=== PATIENT | female | born 1965 | race Caucasian/White ===

== ENCOUNTER 2016-08-02 09:06 | Outpatient (CLI) | payer OTHER ==
[2016-08-02 13:20] LABS: BASOPHILS % (AUTO) 0.8 %; EOSINOPHILS # (AUTO) 0.1 10^3/uL (0.0-0.7); EOSINOPHILS % (AUTO) 1.7 %; HCT - HEMATOCRIT 39.4 % (37.0-47.0); HGB - HEMOGLOBIN 13.3 g/dL (12.0-16.0); LYMPHOCYTES # (AUTO) 1.6 10^3/uL (1.5-3.5); LYMPHOCYTES % (AUTO) 35.5 %; MEAN CORPUSCULAR HEMOGLOBIN 31.7 pg (27.0-31.0); MEAN CORPUSCULAR HGB CONC 33.8 g/dL (32.0-36.0); MEAN CORPUSCULAR VOLUME 93.8 fL (81.0-99.0); MEAN PLATELET VOLUME 7.6 fL (7.9-10.8); MONOCYTES # (AUTO) 0.4 10^3/uL (0.0-1.0); NEUTROPHILS # (AUTO) 2.5 10^3/uL (1.5-6.6); RED CELL DISTRIBUTION WIDTH 12.7 % (12.0-15.0); UNCORRECTED WHITE BLOOD COUNT 4.6 x10^3/uL; WHITE BLOOD COUNT 4.6 x10^3/uL (4.8-10.8)
[2016-08-02 13:54] LABS: ALBUMIN/GLOBULIN RATIO 1.5 (1.0-2.2); BILIRUBIN,TOTAL 0.6 mg/dL (0.2-1.0); BUN - BLOOD UREA NITROGEN 17 mg/dL (6-20); CALCIUM 9.5 mg/dL (8.5-10.3); CARBON DIOXIDE - CO2 26 mmol/L (21-32); CHLORIDE 109 mmol/L (101-111); CHOL/HDL RATIO 3.3 (<4.4); CHOLESTEROL 224 mg/dL; CREATININE 0.7 mg/dL (0.4-1.0); GFR - MDRD 88 (>89); GLUCOSE 96 mg/dL (70-100); HDL CHOLESTEROL 67 mg/dL; POTASSIUM 3.9 mmol/L (3.5-5.0); SODIUM 142 mmol/L (135-145); TOTAL PROTEIN 6.9 g/dL (6.7-8.2); TRIGLYCERIDES 98 mg/dL; VLDL CHOLESTEROL 20 mg/dL
[2016-08-02 14:29] LABS: HEMOGLOBIN A1C 0.53 g/dL
== END 2016-08-02 09:07 | disposition home or self-care (01) ==
LOC: LAB.WCP 09:06
PROVIDERS: ATTEND Family Medicine
DX: Z00.00 Encounter for general adult medical examination without abnormal findings (principal); I10 Essential (primary) hypertension
CPT/HCPCS: 36415; 80053; 80061; 83036; 84443; 85025

== ENCOUNTER 2016-09-10 13:48 | Outpatient (CLI) | payer OTHER ==
--- NOTE | 2016-09-10 18:44 | Ultrasound Report ---
LEFT BREAST ULTRASOUND: 09/10/2016 CLINICAL HISTORY: A 51-year-old female who has a small palpable prominence in the inner inferior harriet drant of the left breast 1-2 cm from the left nipple at the 8 o'clock position. Patient's mammogram today was negative. TECHNIQUE: Real-time scanning was performed with hotel services sales representative static images obtained. FINDINGS: Left breast ultrasound is negative. No significant masses are seen. No cysts are noted. Considering the negative bilateral mammogram and left breast ultrasound, patient's palpable prominenc e is most likely normal breast tissue. Patient was told by Dr. Leslie that she should keep track of the area of concern with monthly breast exams. If she notices a significant change in the area, she should return to her physician. IMPRESSION: NEGATIVE LEFT BREAST ULTRASOUND. AREA OF CLINICAL CONCERN IN THE LEFT BREAST MOST LIKEL Y REPRESENTS NORMAL BREAST TISSUE DISCUSSED ABOVE. BIRADS CATEGORY 1 - NEGATIVE. RECOMMENDATIONS: Annual bilateral screening mammography. JOB #: [id number] EXT JOB #:[id number]
--- NOTE | 2016-09-10 18:49 | Mammography Report ---
DIAGNOSTIC BILATERAL DIAGNOSTIC MAMMOGRAM: 09/10/2016 CLINICAL HISTORY: This is a 51-year-old female who has a palpable prominence in the inner inferior q uadrant of the left breast 1-2 cm from the left nipple at the 8 o'clock position. Patient has no fam yuki history of breast tissue cancer. Patient has no past history of breast surgeries. COMPARISON: 08/08/2009, 03/20/2013 TECHNIQUE: Craniocaudad and oblique lateral views of each breast were obtained with [facility] Full Fie ld digital mammography. To compliment the exam, coned-down compression craniocaudad view of the left breast was done and a mediolateral view. FINDINGS: Breast parenchyma consists of scattered fibroglandular densities. No clusters of calcific ation are seen. No masses are noted. No change is seen. Considering patient has a palpable prominence, recommend a left breast ultrasound to compliment the p resent study. Ultrasound can show abnormalities especially in patients who have palpable prominences that are not demonstrable on mammography. IMPRESSION: BIRADS 0 - INCOMPLETE. NEEDS ADDITIONAL IMAGING EVALUATION. LEFT BREAST ULTRASOUND. LEFT BREAST ULTRASOUND WILL BE DONE TODAY PART OF PATIENT'S EVALUATION. STANDARD QUALIFYING STATEMENTS 1. This examination was reviewed with the aid of Computer-Aided Detection (CAD). 2. A negative or benign imaging report should not delay biopsy if clinically suspicious findings are present. Consider surgical consultation if warranted. More than 5% of cancers are not identified by luz chaudhary. 3. Dense breasts may obscure an underlying neoplasm. JOB #: [id number] EXT JOB #:[id number]
== END 2016-09-10 13:49 | disposition home or self-care (01) ==
LOC: DI 13:48
PROVIDERS: ATTEND Physician Assistant Medical
DX: N63 Unspecified lump in breast (principal)
CPT/HCPCS: 76642; 77066

== ENCOUNTER 2016-11-27 20:01 | Outpatient (CLI) | payer OTHER ==
--- NOTE | 2016-11-28 10:29 | Ultrasound Report ---
PELVIC ULTRASOUND: 11/27/2016 CLINICAL INDICATION: Dysfunctional uterine bleeding, ovarian cyst. COMPARISON: 04/19/2015 TECHNIQUE: Transabdominal pelvic ultrasound performed for global evaluation. Transvaginal pelvic ult rasound performed for detailed evaluation. Real-time scanning performed and static images obtained. FINDINGS: The uterus is anteverted, measuring 10.5 x 6.2 x 5.4 cm. The endometrium now measures 14 mm. A 1.7 x 1.5 x 1.2 cm anterior submucosal leiomyoma is noted. The right ovary measures 2.9 x 1.9 x 1.8 cm, and is unremarkable. The left ovary measures 4.6 x 2.2 x 1.8 cm, and contains a 2.9 x 1.6 x 1.6 cm cyst. No free fluid is present. IMPRESSION: A 14 MM ENDOMETRIUM. ANTERIOR SUBMUCOSAL LEIOMYOMA. RESOLUTION OF PREVIOUSLY SEEN RIGH T OVARIAN CYST. A 2.9 CM LEFT OVARIAN CYST. JOB #: [id number] EXT JOB #:[id number]
== END 2016-11-27 20:02 | disposition home or self-care (01) ==
LOC: DI 20:01
PROVIDERS: ATTEND Physician Assistant Medical
DX: D25.0 Submucous leiomyoma of uterus (principal); N83.202 Unspecified ovarian cyst, left side
CPT/HCPCS: 76830; 76856

== ENCOUNTER 2016-12-17 16:32 | Outpatient (CLI) | payer OTHER ==
[2016-12-17 17:20] LABS: BASOPHILS # (AUTO) 0.1 10^3/uL (0.0-0.1); BASOPHILS % (AUTO) 0.7 %; EOSINOPHILS # (AUTO) 0.1 10^3/uL (0.0-0.7); EOSINOPHILS % (AUTO) 1.5 %; HCT - HEMATOCRIT 36.7 % (37.0-47.0); HGB - HEMOGLOBIN 12.3 g/dL (12.0-16.0); LYMPHOCYTES # (AUTO) 3.4 10^3/uL (1.5-3.5); LYMPHOCYTES % (AUTO) 39.2 %; MEAN CORPUSCULAR HEMOGLOBIN 31.5 pg (27.0-31.0); MEAN CORPUSCULAR HGB CONC 33.5 g/dL (32.0-36.0); MEAN CORPUSCULAR VOLUME 93.8 fL (81.0-99.0); MEAN PLATELET VOLUME 6.5 fL (7.9-10.8); MONOCYTES # (AUTO) 0.8 10^3/uL (0.0-1.0); MONOCYTES % (AUTO) 9.1 %; NEUTROPHILS # (AUTO) 4.2 10^3/uL (1.5-6.6); NEUTROPHILS % (AUTO) 49.5 %; RED BLOOD COUNT 3.91 10^6/uL (4.20-5.40); RED CELL DISTRIBUTION WIDTH 12.7 % (12.0-15.0); UNCORRECTED WHITE BLOOD COUNT 8.6 x10^3/uL; WHITE BLOOD COUNT 8.6 x10^3/uL (4.8-10.8)
[2016-12-17 17:32] LABS: BILIRUBIN,URINE NEGATIVE (NEGATIVE); PH,URINE 6.5 PH (5.0-7.5)
[2016-12-17 17:37] LABS: ALBUMIN/GLOBULIN RATIO 1.7 (1.0-2.2); BILIRUBIN,TOTAL 0.5 mg/dL (0.2-1.0); CALCIUM 9.6 mg/dL (8.5-10.3); CREATININE 0.8 mg/dL (0.4-1.0); POTASSIUM 3.2 mmol/L (3.5-5.0); TOTAL PROTEIN 7.1 g/dL (6.7-8.2)
== END 2016-12-17 16:33 | disposition home or self-care (01) ==
LOC: LAB 16:32
PROVIDERS: ATTEND Obstetrics & Gynecology
DX: Z01.812 Encounter for preprocedural laboratory examination (principal); N95.0 Postmenopausal bleeding; D21.9 Benign neoplasm of connective and other soft tissue, unspecified
CPT/HCPCS: 36415; 80053; 81003; 85025; 86850; 86900; 86901

== ENCOUNTER 2016-12-19 10:20 | Day surgery (SDC) | payer OTHER ==
--- NOTE | 2016-12-17 18:32 | PREOP HISTORY & PHYSICAL ---
DATE OF ADMISSION/SURGERY: 12/19/2016 DIAGNOSES: 1. Menorrhagia, Failing Medical Treatment. 2. Submucosal fibroid. 3. Postmenopausal x9 months. HISTORY OF PRESENT ILLNESS: The patient is a 51-year-old 2, para 2, woman who reports unremitting postmenopausal bleeding that has been heavier over the last couple of months. Menopause was confirmed by an elevated FSH in February of 2015. She reports most recently 2 weeks of sustained bleeding, with clots and saturation of pads. This stopped today. She feels anemic and has decreased exercise tolerance. She has no orthostatic signs. Transvaginal ultrasound revealed a 14 mm endometrial stripe and an anterior submucosal leiomyoma that is 17 x 15 x 12 mm. There was no ovarian pathology noted. Endometrial biopsy was negative for hyperplasia and malignancy. The patient has a distant history of an abnormal Pap smear that has been normal since her colposcopy. She is not on supplemental estrogen. Menarche at 14 and possible menopause in February of 2015. She has never used contraception. PAST MEDICAL HISTORY: Positive for hypertension, treated with weight loss and antidiuretics. PAST SURGICAL HISTORY: None ALLERGIES: THE PATIENT IS SENSITIVE TO HYDROCODONE, WITH EXTENDED VOMITING. 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 Drinks 1-3 cups of coffee a day. No particular diet. Nonsmoker. Social drinker. No street drugs. . FAMILY HISTORY: No genetic diseases. REVIEW OF SYSTEMS: GENERAL: Weight gain and fatigue. HEENT: Negative. CARDIOVASCULAR: No chest pain, palpitations, or irregularities. RESPIRATORY: No shortness of breath. No current infection. GASTROINTESTINAL: Negative. GYNECOLOGIC: Reference HPI. URINARY: Negative. MUSCULOSKELETAL: Negative. SKIN: Negative. NEUROLOGIC: Negative. PSYCHOLOGIC: Negative. BREASTS: No reported problems. LYMPHATIC/HEMATOLOGIC: Does not have easy bleeding tendency. PHYSICAL EXAMINATION: GENERAL: Well groomed. Pleasant demeanor. VITAL SIGNS: Posted. HEENT: Nonicteric sclerae. EOMI. Moist mucous membranes, with no pharyngitis. NECK: Supple. No thyromegaly. BREASTS: Deferred. LUNGS: Clear to auscultation. CARDIAC: Faint systolic ejection murmur. No gallop. Regular rhythm. ABDOMEN: Pannus. Truncal obesity. No organomegaly. No herniation. GENITOURINARY: Vulva: Normal Bartholin's glands, without atrophy. No lesions. Urethral meatus normal. Mobile. No incontinence observed. VAGINA: Moist mucosa. Prien. No significant prolapse. CERVIX: No lesions or ulcerations. No cervical motion tenderness. UTERUS: Parous. Difficult to determine size due to body habitus. ADNEXA: No tenderness noted. Ovaries seem to be normal size. EXTREMITIES: No edema. Warm hands and feet. Patellar reflexes 2+ and equal. NEUROLOGICAL: Grossly intact. PSYCHOLOGIC: Calm demeanor. No overt anxiety or evidence of depression. ASSESSMENT: The patient has had an extended episode of postmenopausal bleeding, with a negative biopsy. There is a submucosal fibroid which accounts for most of her bleeding. Therefore, the underlying cause is a functional uterine bleeding that would respond best by surgical intervention. PLAN: Hysteroscopy to assess the inner cavity. If there is suspicious tissue, we will biopsy and do a D and C. After examination of the cavity, if the fibroid has a significant impact on the contour, we will perform a myomectomy. After the hysteroscopy, NovaSure endometrial ablation will be performed to cauterize the lining of the uterus. I reviewed the procedure & plan in detail with the patient, including the risks of bleeding, transfusion, infection, perforation either during hysteroscopy or myomectomy, and fluid embolism. The patient desires to move forward with hysteroscopy, with NovaSure endometrial ablation and possible myomectomy. JOB #: [id number] EXT JOB #:[id number] MTDD
[2016-12-19] MEDS ORDERED: LACTATED RINGERS 1,000 ML IV ONE (10:44)
[2016-12-19 10:56] LABS: HCG UR QUAL NEGATIVE
[2016-12-19] MEDS ORDERED: KETOROLAC 30 MG/ML VIAL IVP ONE (11:30)
[2016-12-19] MEDS ORDERED: fentaNYL 100 MCG/2 ML VIAL IVP ONE (11:30)
[2016-12-19] MEDS ORDERED: LIDOCAINE-MPF 2% 5 ML VIAL IM ONE (11:30)
[2016-12-19] MEDS ORDERED: PROPOFOL 200 MG/20 ML VIAL IVP ONE (11:30)
[2016-12-19] MEDS ORDERED: ONDANSETRON 4 MG/2 ML VIAL IVP ONE (11:30)
[2016-12-19] MEDS ORDERED: DEXAMETHASONE 4 MG/ML VIAL IVP ONE (11:30)
[2016-12-19] MEDS ORDERED: MIDAZOLAM 2 MG/2 ML VIAL IVP ONE (11:30)
--- NOTE | 2016-12-19 12:12 | OPERATIVE REPORT ---
Operative Report - General Planned Procedure: Hysteroscopy with endometrial ablation (NovaSure) and possible myomectomy a Pre-Op Diagnosis: Abnormal uterine bleeding/menorrhagia,Submucosal fibroid, Thickened endomet Procedure Performed: Hysteroscopy, dilatation and curettage, NovaSure endometrial ablation Post Op Diagnosis: Same as preop, await pathology - Procedure Note Primary Surgeon: Ortega Damon MD Anesthesia Provider: Mike Hayes certified nurse product managent intern Anesthesia Technique: General ET tube Pathology: Endometrial curettage sent Estimated Blood Loss (mL): 50 Urine Output (mL): 400 Complications: None
[2016-12-19] MEDS ORDERED: HYDROcod/ACETAM 5/325 MG TABLET ONE (12:47)
[2016-12-19 13:23] VITALS: BP 127/66
--- NOTE | 2016-12-19 15:49 | OPERATIVE REPORT ---
DATE OF SURGERY: 12/19/2016 00:00:00 PREOPERATIVE DIAGNOSES 1. Abnormal uterine bleeding/menorrhagia/ 2. Submucosal fibroid. 3. Endometrial thickening with normal endometrial biopsy. POSTOPERATIVE DIAGNOSES 1. Abnormal uterine bleeding/menorrhagia. 2. Submucosal fibroid. 3. Endometrial thickening with normal endometrial biopsy. 4. Await pathology. PROCEDURE 1. Hysteroscopy. 2. NovaSure endometrial ablation. 3. Endometrial curettage. 4. Cystoscopy. SURGEON: Ortega Damon MD, FACOG. MAGAZINE EDITOR: Mike Hayes, certified union contract representative. ANESTHESIA TECHNIQUE: General with ET tube placed. PATHOLOGY: Endometrial scrapings sent for histopathology. INTRAVENOUS FLUIDS: 1000. ESTIMATED BLOOD LOSS: Less than 50. URINE OUTPUT: 400 clear. DRAINS: None. FINDINGS: Cervix has no lesions to gross examination. Uterus is slightly enlarged. It sounds to 8.5 cm. The interior shows no fibroid effect. There is velvety mat of benign-appearing endometrium on the posterior aspect of the uterus. Appears to be simple hyperplasia. There was no significant fibroid effect seen. Post-treatment, it is estimated that 95% of the cavity was treated by the NovaSure. Reference photos. Cystoscopy revealed normal uterine mucosa and functional ureters. TECHNIQUE: Prior to the surgery, there was a patient conference that reviewed the intended procedures, their mechanics, risks, benefits, and alternatives. The patient confirms that she intends to continue forward with the procedure and all informed consent documents were signed. The patient was placed on the operating table in the supine position. She was uneventfully induced and intubated. She was then moved to the low dorsal lithotomy position. She was prepped and draped in the customary sterile fashion. Time-out procedure was done per protocol. Lithotomy was raised into the high lithotomy position. A weighted speculum was placed in the posterior vagina. A cystoscopy was performed. There was no cystitis found and the ureters appeared to be functional. Anterior cervical lip was grasped with a single-toothed tenaculum and it was uneventfully dilated with Hegar probes to a size 7. It was sounded to 8.5 cm. The hysteroscope was then introduced into the cavity, and using distilled water the cavity was expanded under 150 mm of pressure. Photos were taken. There was no fibroid effect noted. Due to the tissue found on the posterior aspect of the uterus, a medium size curet was introduced into the cavity and systematic scraping removed a small amount of benign-appearing tissue. The cavity then was flushed. Next, the NovaSure was brought to the field. The sounding was used to dissect the vertical indices at 6.5. NovaSure was introduced into the cavity and deployed, total width was 4.9. These settings were placed. The NovaSure performed its self-test routine, which was normal. The NovaSure was then fired for a period of less than 1 minute. After treatment, it was folded up and removed from the uterus. Hysteroscope was then reintroduced and the treated areas photographed. The patient was awakened from general anesthesia. She was taken to the recovery room in good condition. She was prepared for discharge later today. DISCHARGE MEDICATIONS: Motrin and Paige as previously written in the office. Followup will be in 4 weeks. JOB #: [id number] EXT JOB #:[id number]
== END 2016-12-19 10:21 | disposition home or self-care (01) ==
LOC: SDS 10:20
PROVIDERS: ATTEND Obstetrics & Gynecology
PROC: 0UDB7ZX Extraction of Endometrium, Via Natural or Artificial Opening, Diagnostic (ICD-10-PCS; 2016-12-19)
PROC: 0TJB8ZZ Inspection of Bladder, Via Natural or Artificial Opening Endoscopic (ICD-10-PCS; 2016-12-19)
PROC: 0U5B8ZZ Destruction of Endometrium, Via Natural or Artificial Opening Endoscopic (ICD-10-PCS; principal; 2016-12-19 11:30)
DX: N95.0 Postmenopausal bleeding (principal); D25.0 Submucous leiomyoma of uterus
CPT/HCPCS: 52000; 58563; 81025; A9270; J7120

== ENCOUNTER 2017-07-05 09:50 | Outpatient (CLI) | payer OTHER ==
[2017-07-05 14:15] LABS: CALCIUM 9.9 mg/dL (8.5-10.3); CREATININE 0.7 mg/dL (0.4-1.0)
== END 2017-07-05 09:51 | disposition home or self-care (01) ==
LOC: LAB.WCP 09:50
PROVIDERS: ATTEND Physician Assistant Medical
DX: E83.52 Hypercalcemia (principal)
CPT/HCPCS: 36415; 80048

== ENCOUNTER 2018-07-30 10:54 | Outpatient (CLI) | payer OTHER ==
[2018-07-30 18:52] LABS: BASOPHILS % (AUTO) 0.7 %; EOSINOPHILS # (AUTO) 0.1 10^3/uL (0.0-0.7); EOSINOPHILS % (AUTO) 1.6 %; HGB - HEMOGLOBIN 14.2 g/dL (12.0-16.0); LYMPHOCYTES # (AUTO) 2.3 10^3/uL (1.5-3.5); LYMPHOCYTES % (AUTO) 42.8 %; MEAN PLATELET VOLUME 7.8 fL (7.9-10.8); MONOCYTES # (AUTO) 0.4 10^3/uL (0.0-1.0); MONOCYTES % (AUTO) 6.8 %; NEUTROPHILS # (AUTO) 2.6 10^3/uL (1.5-6.6); NEUTROPHILS % (AUTO) 48.1 %; PLT - PLATELET COUNT 254 10^3/uL (130-450); RED BLOOD COUNT 4.59 10^6/uL (4.20-5.40); RED CELL DISTRIBUTION WIDTH 12.7 % (12.0-15.0); WHITE BLOOD COUNT 5.4 x10^3/uL (4.8-10.8)
[2018-07-30 19:32] LABS: ALBUMIN 4.4 g/dL (3.2-5.5); ALBUMIN/GLOBULIN RATIO 1.7 (1.0-2.2); ALKALINE PHOSPHATASE 62 IU/L (42-121); ALT ALANINE AMINOTRANSFERASE 37 IU/L (10-60); AST ASPARTATE AMINOTRANSFERASE 25 IU/L (10-42); BILIRUBIN,TOTAL 0.9 mg/dL (0.2-1.0); BUN - BLOOD UREA NITROGEN 20 mg/dL (6-20); CALCIUM 9.7 mg/dL (8.5-10.3); CARBON DIOXIDE - CO2 26 mmol/L (21-32); CHLORIDE 104 mmol/L (101-111); CHOL/HDL RATIO 3.4 (<4.4); CHOLESTEROL 210 mg/dL; CREATININE 0.8 mg/dL (0.4-1.0); GFR - MDRD 75 (>89); GLUCOSE 113 mg/dL (70-100); HDL CHOLESTEROL 62 mg/dL; LDL CHOLESTEROL,CALCULATED 122 mg/dL; SODIUM 140 mmol/L (135-145); VLDL CHOLESTEROL 26 mg/dL
== END 2018-07-30 10:55 | disposition home or self-care (01) ==
LOC: LAB.WCP 10:54
PROVIDERS: ATTEND Physician Assistant Medical
DX: Z00.00 Encounter for general adult medical examination without abnormal findings (principal)
CPT/HCPCS: 36415; 80053; 80061; 83721; 84443; 85025

== ENCOUNTER 2018-09-30 11:16 | Outpatient (CLI) | payer OTHER ==
--- NOTE | 2018-10-01 09:04 | XRAY Report ---
Reason: LUMBAR RADICULOPATHY,RIGHT Procedure Date: 09/30/2018 Accession Number: [id number] / [id number] Procedure: XR - Lumbar Spine 2 View CPT Code: FULL RESULT: EXAM: LUMBOSACRAL SPINE RADIOGRAPHY EXAM DATE: 09/30/2018 11:29 AM. CLINICAL HISTORY: Low back pain, right. COMPARISONS: XR LUMBOSACRAL SPINE 4 VIEWS 02/27/2010 4:44 PM. TECHNIQUE: 3 views. FINDINGS: Alignment: Normal. No spondylolisthesis or scoliosis. Bones: Five csl-hzb-uyeucgb lumbar vertebral bodies are present. No fractures or bone lesions. Disks: Moderate to severe L5-S1 disk space narrowing and moderate bridging spurring are new compared with prior exam. Otherwise, substantial lumbar disk space narrowing is not demonstrated. Facets: L5-S1 degenerative facet disease is probably progressed. Sacroiliac Joints: Unremarkable. Soft Tissues: Normal. The visualized bowel gas pattern is normal. IMPRESSION: 1. Moderate to severe L5-S1 degenerative disk disease, new compared with 2011. 2. L5-S1 degenerative facet disease, probably progressed. RADIA
== END 2018-09-30 11:17 | disposition home or self-care (01) ==
LOC: DI 11:16
PROVIDERS: ATTEND Family Medicine
DX: M51.17 Intervertebral disc disorders with radiculopathy, lumbosacral region (principal)
CPT/HCPCS: 72100

== ENCOUNTER 2018-10-02 17:22 | Outpatient (CLI) | payer OTHER ==
[2018-10-02] MEDS ORDERED: GADOBUTROL 10 MMOL/10 ML VIAL IV ONE (18:44)
[2018-10-02] MEDS ORDERED: GADOBUTROL 10 MMOL/10 ML VIAL ONE (18:49)
--- NOTE | 2018-10-03 04:26 | MRI Report ---
Reason: LUMBAR RADICULOPATHY Procedure Date: 10/02/2018 Accession Number: [id number] / [id number] Procedure: MRI - Lumbar Spine W/WO CPT Code: FULL RESULT: EXAM: MRI LUMBAR SPINE WITHOUT AND WITH CONTRAST EXAM DATE: 10/02/2018 07:01 PM. CLINICAL HISTORY: LUMBAR RADICULOPATHY. COMPARISONS: None. TECHNIQUE: Multiplanar, multisequence T1-weighted and fluid-sensitive sequences of the lumbar spine from T12 to S1 before and after administration of intravenous contrast. Other: None. IV contrast: Yes. FINDINGS: Neurologic Structures: The conus terminates at L1. The conus medullaris and cauda equina are unremarkable. Alignment: No scoliosis or spondylolisthesis. Bone Marrow: Five ere-egz-wuuqkph lumbar vertebral bodies are assumed. No gross fractures or bone lesions. No bone marrow replacement or abnormal enhancement. Disk Levels/Facets: T12-L1: There is minimal anterior bulging at this level. Posteriorly the disk is intact. The canal and the foramina are widely patent. L1-L2: The disk is intact. The canal and the foramina are widely patent. L2-L3: The disk is intact. The canal and the foramina are widely patent. Incidental note is made of a prominent hemangioma within the L2 vertebral body. L3-L4: The disk is intact. The canal and the foramina are widely patent. L4-L5: The disk is intact. The canal and the foramina are widely patent. There are moderate degenerative changes at the facets. L5-S1: There is severe disk space narrowing. There are marked diskogenic changes in the marrow of L5 and S1. There are no focal protrusions. There is no mass-effect on any neural structures. The canal and the foramina are widely patent. There are degenerative changes at the facets. Spinal Canal: No enhancing masses within the spinal canal. No epidural abscess. Musculature: Normal. No edema, abnormal enhancement, or fatty atrophy. Other: The visualized retroperitoneum is unremarkable. IMPRESSION: 1. Severe degeneration and narrowing of the L5-S1 facet. No canal neuroforaminal stenosis. 2. Degenerative changes at the facets L4-L5 and L5-S1. 3. Incidental note is made of an hemangioma in the L2 vertebral body. This is of no clinical significance. Comment: The following findings are so common in adults without low back pain that while we report their presence, they must be interpreted with caution and in the context of the clinical situation. (Reference Ritikak et al, Spine 2001) Prevalence of findings in patients without low back pain: Disk degeneration (any evidence): 92% Disk desiccation/T2 signal loss: 83% Disk height loss: 56% Disk bulge: 64% Disk protrusion: 32% Annular tear/high intensity zone: 38% RADIA
== END 2018-10-02 17:23 | disposition home or self-care (01) ==
LOC: DI 17:22
PROVIDERS: ATTEND Family Medicine
DX: M47.816 Spondylosis without myelopathy or radiculopathy, lumbar region (principal); M47.817 Spondylosis without myelopathy or radiculopathy, lumbosacral region; M51.37 Other intervertebral disc degeneration, lumbosacral region
CPT/HCPCS: 72158; A9585

== ENCOUNTER 2018-10-13 09:47 | Outpatient (CLI) | payer OTHER ==
--- NOTE | 2018-10-13 15:57 | XRAY Report ---
Reason: UNSPECIFIED FALL,GROIN PAIN RT Procedure Date: 10/13/2018 Accession Number: [id number] / [id number] Procedure: XR - Hip w/Pelvis 2-3V RT CPT Code: FULL RESULT: EXAM: RIGHT HIP RADIOGRAPHY EXAM DATE: 10/13/2018 10:01 AM. CLINICAL HISTORY: Unspecified fall, right groin pain. COMPARISON: XR LUMBOSACRAL SPINE 4 VIEWS 02/27/2010. TECHNIQUE: 2 views. FINDINGS: Bones: Normal. No fractures or bone lesion. Joints: No dislocation or subluxation. Mild asymmetric degenerative change noted in the left SI joint. Right SI joint is normal. Soft Tissues: Normal. No soft tissue swelling. IMPRESSION: No fracture or malalignment. RADIA
== END 2018-10-13 09:48 | disposition home or self-care (01) ==
LOC: DI 09:47
PROVIDERS: ATTEND Physician Assistant
DX: R10.31 Right lower quadrant pain (principal)

== ENCOUNTER 2019-01-06 08:22 | Outpatient (CLI) | payer OTHER ==
--- NOTE | 2019-01-06 10:00 | Mammography Report ---
Reason: ROUTINE MAMMO Procedure Date: 01/06/2019 Accession Number: [id number] / [id number] Procedure: ANDREY - Screening Mammo w/Zen CPT Code: Final Report FULL RESULT: EXAM: Screening Mammo w/Zen DATE: 01/06/2019 8:47 AM CLINICAL HISTORY: Routine screening. No reported personal or family history of breast cancer. TECHNIQUE: (B) - Bilateral CC and MLO views were obtained. COMPARISON: 7 09/11/2016 through 03/20/2013. PARENCHYMAL PATTERN: (A) - The breasts demonstrate scattered fibroglandular densities bilaterally. FINDINGS: Bilateral breasts: There are multiple similar-appearing round and oval circumscribed margin benign-appearing masses, 2 on the left one on the right. There are no suspicious masses, calcifications, or areas of distortion. IMPRESSION: Benign findings. BI-RADS category 2. RECOMMENDATION: (ANNUAL) - Recommend routine annual screening mammography. BI-RADS CATEGORY: (2) - Benign Findings. STANDARD QUALIFYING STATEMENTS: 1. This examination was not reviewed with the aid of Computer-Aided Detection (CAD). 2. A negative or benign imaging report should not preclude biopsy if clinically suspicious findings are present. 3. Dense breasts may obscure an underlying neoplasm. 4. This examination was reviewed with the aid of 3D breast imaging (tomosynthesis).
== END 2019-01-06 08:23 | disposition home or self-care (01) ==
LOC: DI 08:22
DX: Z12.31 Encounter for screening mammogram for malignant neoplasm of breast (principal)
CPT/HCPCS: 77063; 77067

== ENCOUNTER 2019-03-03 14:44 | Outpatient (CLI) | payer OTHER ==
[2019-03-03] MEDS ORDERED: IOVERSOL 320 50 ML VIAL ONE (14:50)
[2019-03-03] MEDS ORDERED: IOVERSOL 320 100 ML VIAL IVP ONE ×2 (14:50→16:26)
[2019-03-03 15:50] LABS: CREATININE 0.8 mg/dL (0.4-1.0)
[2019-03-03] MEDS ORDERED: IOVERSOL 320 50 ML VIAL PO ONE (16:26)
--- NOTE | 2019-03-04 13:04 | CT Report ---
Reason: GROIN PAIN RT Procedure Date: 03/03/2019 Accession Number: [id number] / [id number] Procedure: CT - Abdomen/Pelvis W CPT Code: Final Report FULL RESULT: EXAM: CT ABDOMEN AND PELVIS EXAM DATE: 03/03/2019 04:25 PM. CLINICAL HISTORY: Right groin pain and numbness x3 days COMPARISONS: None. TECHNIQUE: Routine helical CT imaging was performed through the abdomen and pelvis. IV contrast: 100 mL Optiray 320. Enteric contrast: Yes. Reconstructions: Coronal and sagittal. In accordance with CT protocol optimization, one or more of the following dose reduction techniques were utilized for this exam: automated exposure control, adjustment of mA and/or KV based on patient size, or use of iterative reconstructive technique. FINDINGS: Lung Bases: Minimal bibasilar atelectasis. Visible heart is normal in size. No pericardial effusion. Liver: The liver appears low in attenuation suggesting steatosis. No focal intrahepatic mass is seen. Gallbladder/Bile Ducts: Normal gallbladder. No biliary dilatation. Spleen: Normal. Pancreas: Normal. Adrenal Glands: Normal. Kidneys: Normal. No masses or hydronephrosis. Peritoneal Cavity/Bowel: Scattered diverticula are seen in the colon. Mild inflammatory changes are seen adjacent to the cecum and ascending colon in an area of diverticula. The intestines are normal in caliber and position. The appendix is normal. There is no free intraperitoneal air or ascites. No lymphadenopathy is present. No loculated fluid collection is present. Pelvic Organs: The bladder is normal. The uterus and adnexal structures are within normal limits. Phleboliths are seen in the pelvis. There is no free pelvic fluid. Vasculature: No aneurysms or other significant abnormality. Bones: Degenerative disk disease is seen at T9-T10 and L5-S1. Facet arthropathy and osteophytes are also seen at L5-S1. Other: None. IMPRESSION: Mild cecum and ascending colon diverticulitis. Normal appendix. RADIA
== END 2019-03-03 14:45 | disposition home or self-care (01) ==
LOC: DI 14:44
PROVIDERS: ATTEND Physician Assistant Medical
DX: K57.32 Diverticulitis of large intestine without perforation or abscess without bleeding (principal); R73.9 Hyperglycemia, unspecified
CPT/HCPCS: 36415; 74177; 80048; Q9967

== ENCOUNTER 2019-04-13 12:35 | Day surgery (SDC) | payer OTHER ==
[2019-04-13] MEDS ORDERED: LACTATED RINGERS 1,000 ML IV ONE (13:08)
[2019-04-13] MEDS ORDERED: MIDAZOLAM 2 MG/2 ML VIAL IVP ONE (14:02)
[2019-04-13] MEDS ORDERED: fentaNYL 250 MCG/5 ML VIAL IVP ONE (14:02)
[2019-04-13 14:47] VITALS: BP 112/70
== END 2019-04-13 12:36 | disposition home or self-care (01) ==
LOC: SDS 12:35
PROVIDERS: ATTEND Internal Medicine Gastroenterology
PROC: 0DBN8ZZ Excision of Sigmoid Colon, Via Natural or Artificial Opening Endoscopic (ICD-10-PCS; 2019-04-13)
PROC: 0DBM8ZZ Excision of Descending Colon, Via Natural or Artificial Opening Endoscopic (ICD-10-PCS; principal; 2019-04-13 14:00)
DX: K57.30 Diverticulosis of large intestine without perforation or abscess without bleeding (principal); D12.4 Benign neoplasm of descending colon; D12.5 Benign neoplasm of sigmoid colon; E66.9 Obesity, unspecified; I10 Essential (primary) hypertension; Z68.35 Body mass index [BMI] 35.0-35.9, adult; Z79.899 Other long term (current) drug therapy
CPT/HCPCS: 45380; J3010; J7120

== ENCOUNTER 2020-04-11 08:00 | Outpatient (CLI) | payer OTHER ==
[2020-04-11 12:46] LABS: HEMOGLOBIN A1c% 6.6 % (4.27-6.07)
[2020-04-11 12:49] LABS: ALBUMIN 4.5 g/dL (3.2-5.5); ALBUMIN/GLOBULIN RATIO 1.6 (1.0-2.2); ALKALINE PHOSPHATASE 65 IU/L (42-121); ALT ALANINE AMINOTRANSFERASE 33 IU/L (10-60); AST ASPARTATE AMINOTRANSFERASE 19 IU/L (10-42); BILIRUBIN,TOTAL 0.7 mg/dL (0.2-1.0); BUN - BLOOD UREA NITROGEN 17 mg/dL (6-20); CALCIUM 9.6 mg/dL (8.5-10.3); CARBON DIOXIDE - CO2 28 mmol/L (21-32); CHLORIDE 102 mmol/L (101-111); CHOL/HDL RATIO 3.4 (<4.4); CHOLESTEROL 227 mg/dL; CREATININE 0.7 mg/dL (0.4-1.0); GLUCOSE 155 mg/dL (70-100); HDL CHOLESTEROL 66 mg/dL; LDL CHOLESTEROL,CALCULATED 136 mg/dL; LDL/HDL RATIO 2.1 (<4.4); TOTAL PROTEIN 7.3 g/dL (6.7-8.2); VLDL CHOLESTEROL 25 mg/dL
== END 2020-04-11 23:59 | disposition home or self-care (01) ==
LOC: LAB.WCP 08:00
PROVIDERS: ATTEND Physician Assistant Medical
DX: E11.65 Type 2 diabetes mellitus with hyperglycemia (principal)
CPT/HCPCS: 36415; 80053; 80061; 83036; 83721

== ENCOUNTER 2021-04-20 10:15 | Outpatient (CLI) | payer OTHER ==
[2021-04-20 12:08] LABS: BASOPHILS % (AUTO) 0.8 %; EOSINOPHILS # (AUTO) 0.1 10^3/uL (0.0-0.7); EOSINOPHILS % (AUTO) 1.9 %; HCT - HEMATOCRIT 41.2 % (37.0-47.0); HGB - HEMOGLOBIN 13.9 g/dL (12.0-16.0); MEAN CORPUSCULAR HEMOGLOBIN 30.8 pg (27.0-31.0); MEAN CORPUSCULAR HGB CONC 33.7 g/dL (32.0-36.0); MEAN CORPUSCULAR VOLUME 91.4 fL (81.0-99.0); MEAN PLATELET VOLUME 9.1 fL (7.9-10.8); MONOCYTES # (AUTO) 0.4 10^3/uL (0.0-1.0); MONOCYTES % (AUTO) 8.2 %; NEUTROPHILS # (AUTO) 2.6 10^3/uL (1.5-6.6); NEUTROPHILS % (AUTO) 49.7 %; PLT - PLATELET COUNT 242 10^3/uL (130-450); RED BLOOD COUNT 4.51 10^6/uL (4.20-5.40); RED CELL DISTRIBUTION WIDTH 11.5 % (12.0-15.0); WHITE BLOOD COUNT 5.2 x10^3/uL (4.8-10.8)
[2021-04-20 12:33] LABS: ALBUMIN 4.4 g/dL (3.2-5.5); ALBUMIN/GLOBULIN RATIO 1.8 (1.0-2.2); ALKALINE PHOSPHATASE 59 IU/L (42-121); ALT ALANINE AMINOTRANSFERASE 31 IU/L (10-60); AST ASPARTATE AMINOTRANSFERASE 20 IU/L (10-42); BILIRUBIN,TOTAL 0.9 mg/dL (0.2-1.0); BUN - BLOOD UREA NITROGEN 14 mg/dL (6-20); CALCIUM 9.6 mg/dL (8.5-10.3); CARBON DIOXIDE - CO2 29 mmol/L (21-32); CHLORIDE 104 mmol/L (101-111); CHOL/HDL RATIO 3.4 (<4.4); CHOLESTEROL 218 mg/dL; CREATININE 0.7 mg/dL (0.4-1.0); GFR - MDRD 87 (>89); GLUCOSE 132 mg/dL (70-100); HDL CHOLESTEROL 65 mg/dL; LDL CHOLESTEROL,CALCULATED 120 mg/dL; LDL/HDL RATIO 1.8 (<4.4); POTASSIUM 4.1 mmol/L (3.5-5.0); SODIUM 139 mmol/L (135-145); TOTAL PROTEIN 6.8 g/dL (6.7-8.2); TRIGLYCERIDES 163 mg/dL; VLDL CHOLESTEROL 33 mg/dL
[2021-04-20 12:39] LABS: THYROID STIMULATING HORMONE 0.45 uIU/mL (0.34-5.60)
[2021-04-20 13:25] LABS: ESTIMATED AVERAGE GLUCOSE 154 mg/dL (70-100)
== END 2021-04-20 10:16 | disposition home or self-care (01) ==
LOC: LAB.N 10:15
PROVIDERS: ATTEND Physician Assistant Medical
DX: E78.5 Hyperlipidemia, unspecified (principal); E11.9 Type 2 diabetes mellitus without complications; I10 Essential (primary) hypertension
CPT/HCPCS: 36415; 80053; 80061; 83036; 83721; 84443; 85025

== ENCOUNTER 2021-08-07 14:05 | Emergency (ER) | payer OTHER ==
[2021-08-07 14:33] LABS: BASOPHILS % (AUTO) 0.6 %; EOSINOPHILS # (AUTO) 0.1 10^3/uL (0.0-0.7); EOSINOPHILS % (AUTO) 1.3 %; HCT - HEMATOCRIT 44.1 % (37.0-47.0); HGB - HEMOGLOBIN 14.7 g/dL (12.0-16.0); LYMPHOCYTES # (AUTO) 2.5 10^3/uL (1.5-3.5); LYMPHOCYTES % (AUTO) 46.3 %; MEAN CORPUSCULAR HEMOGLOBIN 30.8 pg (27.0-31.0); MEAN CORPUSCULAR HGB CONC 33.3 g/dL (32.0-36.0); MEAN CORPUSCULAR VOLUME 92.3 fL (81.0-99.0); MEAN PLATELET VOLUME 8.7 fL (7.9-10.8); MONOCYTES # (AUTO) 0.3 10^3/uL (0.0-1.0); MONOCYTES % (AUTO) 5.6 %; NEUTROPHILS # (AUTO) 2.5 10^3/uL (1.5-6.6); NEUTROPHILS % (AUTO) 45.8 %; PLT - PLATELET COUNT 239 10^3/uL (130-450); RED BLOOD COUNT 4.78 10^6/uL (4.20-5.40); RED CELL DISTRIBUTION WIDTH 11.7 % (12.0-15.0); WHITE BLOOD COUNT 5.4 x10^3/uL (4.8-10.8)
[2021-08-07 14:46] LABS: ALBUMIN 4.6 g/dL (3.2-5.5); ALBUMIN/GLOBULIN RATIO 1.6 (1.0-2.2); CALCIUM 9.7 mg/dL (8.5-10.3); CREATININE 0.8 mg/dL (0.4-1.0); POTASSIUM 3.4 mmol/L (3.5-5.0); TOTAL PROTEIN 7.5 g/dL (6.7-8.2)
--- NOTE | 2021-08-07 16:34 | ED Physician Documentation ---
PD HPI ABD PAIN - Stated complaint Stated Complaint: ABD PX - Chief complaint Chief Complaint: Abd Pain - History obtained from History obtained from: Patient - Additional information Additional information: 56-year-old woman with history of borderline diabetes, hypertension and hypercholesterolemia presents with 2 weeks of abdominal bloating not related to eating. It is associated with nausea which is not happening right now and some mild right upper quadrant pain. She is never had this before. No history of abdominal surgeries. No fevers or chills. Review of Systems Ten Systems: 10 systems reviewed and negative Constitutional: denies: Fever, Chills, Fatigue, Weight Loss Cardiac: denies: Chest pain / pressure, Palpitations Respiratory: denies: Dyspnea, Cough PD PAST MEDICAL HISTORY - Past Medical History Cardiovascular: Hypertension Respiratory: None Endocrine/Autoimmune: None GI: None : None Psych: None Musculoskeletal: None Derm: None - Past Surgical History Past Surgical History: No General: Colonoscopy /INFRASTRUCTURE DIRECTOR: Other - Present Medications Home Medications: Ambulatory Orders Medication Instructions Recorded Confirmed lisinopriL [Lisinopril] 0 mg PO DAILY 11/09/15 08/07/21 Rosuvastatin Calcium [Crestor] 0 mg PO HS 08/07/21 08/07/21 - Allergies Allergies/Adverse Reactions: Allergies Allergy/AdvReac Type Severity Reaction Status Date / Time amoxicillin [From Augmentin] Allergy Respiratory Verified 08/07/21 14:17 clavulanic acid Allergy Respiratory Verified 08/07/21 14:17 [From Augmentin] hydrocodone AdvReac Emesis Verified 08/07/21 14:17 - Social History Does the pt smoke?: No Smoking Status: Never smoker Does the pt have substance abuse?: No - POLST Patient has POLST: No PD ED PE NORMAL - Vitals Vital signs reviewed: Yes - General General: Alert and oriented X 3, No acute distress - Cardiac Cardiac: RRR, No murmur - Respiratory Respiratory: No respiratory distress, Clear bilaterally - Abdomen Abdomen: Normal bowel sounds, Soft, Non tender - Neuro Neuro: Alert and oriented X 3, Normal speech Results - Vitals Vitals: Vital Signs - 24 hr 08/07/21 08/07/21 08/07/21 14:15 16:42 17:39 Temperature 37 C Heart Rate 78 64 85 Respiratory 14 16 18 Rate Blood Pressure 170/86 H 144/92 H 140/75 H O2 Saturation 99 99 98 Oxygen O2 Source Room air - Labs Labs: Laboratory Tests 08/07/21 08/07/21 08/07/21 14:27 14:27 15:05 WBC 5.4 RBC 4.78 Hgb 14.7 Hct 44.1 MCV 92.3 MCH 30.8 MCHC 33.3 RDW 11.7 L Plt Count 239 MPV 8.7 Neut # (Auto) 2.5 Lymph # (Auto) 2.5 [place] # (Auto) 0.3 Eos # (Auto) 0.1 Baso # (Auto) 0.0 Absolute Nucleated RBC 0.00 Nucleated RBC % 0.0 Sodium 142 Potassium 3.4 L Chloride 105 Carbon Dioxide 28 Anion Gap 9.0 BUN 14 Creatinine 0.8 Estimated GFR (MDRD) 74 L Glucose 175 H Calcium 9.7 Total Bilirubin 1.0 AST 24 ALT 36 Alkaline Phosphatase 69 Total Protein 7.5 Albumin 4.6 Globulin 2.9 Albumin/Globulin Ratio 1.6 Lipase 39 Urine Color YELLOW Urine Clarity CLOUDY Urine pH 5.5 Ur Specific [place] >=1.030 H Urine Protein NEGATIVE Urine Glucose (UA) NEGATIVE Urine Ketones NEGATIVE Urine Occult Blood NEGATIVE Urine Nitrite NEGATIVE Urine Bilirubin NEGATIVE Urine Urobilinogen 0.2 (NORMAL) Ur Leukocyte Esterase NEGATIVE Urine RBC None Seen Urine WBC 0-3 Ur Squamous Epith Cells NONE SEEN Amorphous Sediment Marked Urine Bacteria None Seen Ur Microscopic Review INDICATED Urine Culture Comments NOT INDICATED PD MEDICAL DECISION MAKING - ED course ED course: 56-year-old woman presents with right-sided abdominal pain and bloating for the last 2 weeks with decreased bowel movements. CT read showing hepatomegaly, nephrolithiasis and diverticula. Official read without acute findings. I do wonder if she has mild right-sided diverticulitis. No other acute pathology is noted. CT done without contrast given current shortage. Very benign exam. I suspect she has mild right-sided diverticulitis and given the lack of severity to it based on exam and labs I think she will be appropriate for an on antibiotic treatment course per AGA guidelines and she is so advised. The patient Was counseled as to the diagnosis and need for follow-up. I counseled the patient with regard to signs and symptoms that would necessitate an urgent reevaluation in the emergency department. They understand they are welcome to return at any time if worse or if not improving as expected. This document was made in part using voice recognition software. While efforts are made to proofread this documents, sound alike and grammatical errors may occur. Departure - Departure Disposition: 01 Home, Self Care Clinical Impression: Abdominal pain Condition: Good Record reviewed to determine appropriate education?: Yes Instructions: Diet Low Residue, ED Abdominal Pain Female Non-Specific Abdominal Pain Comments: As discussed, labs are looking just fine with out evidence of liver or gallbladder issues or abnormal blood counts. You did have a blood sugar of 175 and this merits recheck with your physician. CT official reading showing diverticulosis, fatty liver, kidney stones in the kidneys. No other processes noted. My view of the CAT scan I wonder if you do have mild right-sided diverticulitis which may be causing your current symptoms. For that I would recommend a clear liquid diet for the next 24 hours and then a low residue diet as attached on the instructions for the next 48 hours. Return if worsening and follow-up with your doctor later this week for recheck regardless. Discharge Date/Time: 08/07/21 17:43
[2021-08-07 16:49] LABS: BILIRUBIN,URINE NEGATIVE (NEGATIVE); GLUCOSE, URINE (UA) NEGATIVE (NEGATIVE); KETONES,URINE (UA) NEGATIVE (NEGATIVE); LEUKOCYTE ESTERASE, URINE NEGATIVE (NEGATIVE); NITRITE,URINE NEGATIVE (NEGATIVE); OCCULT BLOOD,URINE NEGATIVE (NEGATIVE); PH,URINE 5.5 PH (5.0-7.5); PROTEIN,URINE NEGATIVE (NEGATIVE); UROBILINOGEN,URINE 0.2 (NORMAL) E.U./dL (NORMAL)
[2021-08-07 17:11] LABS: CLARITY,URINE CLOUDY (CLEAR)
--- NOTE | 2021-08-07 17:12 | CT Report ---
PROCEDURE: Abdomen/Pelvis WO INDICATIONS: abd pain, bloating TECHNIQUE: Noncontrast 5 mm thick sections acquired from the diaphragms to the symphysis. 5 mm coronal and sagi ttal reformats were then performed. For radiation dose reduction, the following was used: automated exposure control, adjustment of mA and/or kV according to patient size. COMPARISON: CT abdomen and pelvis with IV contrast 03/03/2019. FINDINGS: Image quality: Excellent. Evaluation of the solid organs is limited without IV contrast. ABDOMEN: Lung bases: Lung bases are clear. Heart size is normal. Solid organs: Liver and spleen are normal in size. Hepatic steatosis. Gallbladder is unremarkable. Pancreas is normal in contours. No adrenal nodules. Kidneys are normal in size, without hydronephr osis. Punctate nonobstructing left kidney stones x2 and 1x on the right. Peritoneum and bowel: Unenhanced bowel loops demonstrate normal wall thickness and caliber. Divertic ulosis. The appendix is not identified. No free fluid or air. Nodes and vessels: No retroperitoneal or mesenteric adenopathy by size criteria. Aorta and inferior vena cava are normal in caliber. Miscellaneous: No ventral hernias. PELVIS: Genitourinary: Bladder wall thickness is normal. No bladder stones. Anteverted uterus. Miscellaneous: No inguinal hernias or adenopathy. Bones: No suspicious bony lesions. No vertebral body compression fractures. IMPRESSION: 1. No bowel obstruction. No free fluid. 2. Diverticulosis. No diverticulitis. 3. Hepatic steatosis. 4. Small nonobstructing kidney stones. Reviewed by: Darius Cifuentes MD on 08/07/2021 5:11 PM PDT Approved by: Darius Cifuentes MD on 08/07/2021 5:11 PM PDT Station ID: [id number]
[2021-08-07 17:13] LABS: AMORPHOUS SEDIMENT,UR Marked /LPF; BACTERIA,URINE None Seen /HPF (None Seen); RBC,URINE None Seen /HPF (0-5); SQUAMOUS EPITHELIAL CELL,UR NONE SEEN (<= Few); WBC,URINE 0-3 /HPF (0-5)
[2021-08-07 17:40] VITALS: BP 140/75
== END 2021-08-07 17:43 | disposition home or self-care (01) ==
LOC: ED 14:05
DX: R10.11 Right upper quadrant pain (principal); R73.9 Hyperglycemia, unspecified
CPT/HCPCS: 36415; 80053; 81001; 81003; 83690; 85025; 87086; 99282; 99284

== ENCOUNTER 2021-12-06 15:04 | Outpatient (CLI) | payer OTHER ==
--- NOTE | 2021-12-07 09:48 | Mammography Report ---
BILATERAL DIGITAL SCREENING MAMMOGRAM 3D/2D: 12/06/2021 CLINICAL: Routine screening. Comparison is made to exams dated: 01/06/2019 mammogram, 09/10/2016 ultrasound, 09/10/2016 mammogram, 03/31/2015 mammogram, and 03/20/2013 mammogram - [facility]. There are scattered areas of fibroglandular density in both breasts (category b / 25%-50% glandular t issue). No significant masses, calcifications, or other findings are seen in either breast. There has been no significant interval change. IMPRESSION: NEGATIVE There is no mammographic evidence of malignancy. A 1 year screening mammogram is recommended. Based on the Tyrer Cuzick model (a risk assessment model) the patients lifetime risk is 5.7% and her 10 year risk is 1.8%. According to the ACR, ACS, and NCCN guidelines, an annual breast MRI exam jason g with mammogram is recommended if the patients lifetime risk is 20% or greater. This exam was interpreted at Station ID: [id number]. NOTE: For mammograms, a report in lay terms will be sent to the patient. Approximately 15% of breast malignancies will not be visualized mammographically. In the management of a palpable breast mass, a negative mammogram must not discourage biopsy of a clinically suspicious lesion. Electronically Signed By: Dwight ayon/dale:12/07/2021 07:53:44 ACR BI-RADS Category 1: Negative 3341F PARENCHYMAL PATTERN: (A) - The breast(s) demonstrate(s) scattered fibroglandular densities. BI-RADS CATEGORY: (1) - 1 RECOMMENDATION: (ANNUAL) - Recommend routine annual screening mammography. [id number] 1 year screening LATERALITY: (B)
== END 2021-12-06 15:05 | disposition home or self-care (01) ==
LOC: DI.N 15:04
DX: Z12.31 Encounter for screening mammogram for malignant neoplasm of breast (principal)

== ENCOUNTER 2022-02-20 06:23 | Emergency (ER) | payer OTHER ==
[2022-02-20 06:32] VITALS: BP 167/87
--- NOTE | 2022-02-20 07:08 | ED Physician Documentation ---
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 No history of low back pain. Review of Systems Constitutional: denies: Fever, Chills GI: reports: Reviewed and negative : reports: Reviewed and negative PD PAST MEDICAL HISTORY - Past Medical History Cardiovascular: Hypertension Respiratory: None Endocrine/Autoimmune: None GI: None SUPERVISOR SPEECH: None : None HEENT: None Psych: None Musculoskeletal: None Derm: None - Past Surgical History Past Surgical History: No General: Colonoscopy /SUPERVISOR SPEECH: Other - Present Medications Home Medications: Ambulatory Orders Medication Instructions Recorded Confirmed lisinopriL [Lisinopril] 20 mg PO DAILY 11/09/15 02/20/22 Rosuvastatin Calcium [Crestor] 0 mg PO HS 08/07/21 02/20/22 predniSONE [Deltasone] 20 mg PO [id number] #21 tab 02/20/22 - Allergies Allergies/Adverse Reactions: Allergies Allergy/AdvReac Type Severity Reaction Status Date / Time amoxicillin [From Augmentin] Allergy Respiratory Verified 02/20/22 06:32 clavulanic acid Allergy Respiratory Verified 02/20/22 06:32 [From Augmentin] hydrocodone AdvReac Emesis Verified 02/20/22 06:32 - Social History Does the pt smoke?: No Smoking Status: Never smoker Does the pt drink ETOH?: Yes Does the pt have substance abuse?: No - POLST Patient has POLST: No PD ED PE NORMAL - Vitals Vital signs reviewed: Yes - General General: Alert and oriented X 3, Other (Appears comfortable and moves around without significant pain.) - Abdomen Abdomen: Normal bowel sounds, Soft, Non tender - Back Back: No spinal TTP - Extremities Extremities: Other (The patient has equal and normal Achilles and patellar reflexes bilaterally. Normal sensation in all areas of the legs. Patient denies saddle anesthesia. Normal strength in flexion-extension at the ankles, knees, and flexion of the hips.) - Neuro Neuro: Alert and oriented X 3, Normal speech Results - Vitals Vitals: Vital Signs - 24 hr 02/20/22 06:29 Temperature 36.5 C Heart Rate 74 Respiratory 18 Rate Blood Pressure 167/87 H O2 Saturation 97 Oxygen O2 Source Room air PD Medical Decision Making - ED course ED course: This patient has seemingly uncomplicated musculoskeletal back pain. The patient has no "red flags." Specifically denies IV drug use, fevers, incontinence, saddle anesthesia. Spinal epidural abscess was considered, given that the patient has no fever, is not diabetic, has no spinal tenderness, does not use IV drugs, and has no bilateral neurologic symptoms, the diagnosis of spinal epidural abscess is considered exceedingly unlikely. Departure - Departure Disposition: Home, Self Care Clinical Impression: Back pain Condition: Good Record reviewed to determine appropriate education?: Yes Instructions: ED Low Back Pain Injury Prescriptions: predniSONE [Deltasone] 20 mg PO [id number] #21 tab Comments: You were seen today for low back pain, muscle spasm versus herniated disc. Follow-up with your doctor in a week if not improved, for consideration of p hysical therapy. Return for new or worsening symptoms. In addition to the prednisone you can take ibuprofen, 600 mg every 6 hours for pain and inflammation. Heat, gentle stretching and light activity without anything strenuous. Forms: Activity restrictions
== END 2022-02-20 07:28 | disposition home or self-care (01) ==
LOC: ED 06:23
DX: M54.50 Low back pain, unspecified (principal)
CPT/HCPCS: 99282

== ENCOUNTER 2022-03-16 07:17 | Outpatient (CLI) | payer OTHER ==
[2022-03-16 13:53] LABS: ALBUMIN 4.1 g/dL (3.2-5.5); ALBUMIN/GLOBULIN RATIO 1.5 (1.0-2.2); ALKALINE PHOSPHATASE 54 IU/L (42-121); ALT ALANINE AMINOTRANSFERASE 43 IU/L (10-60); AST ASPARTATE AMINOTRANSFERASE 26 IU/L (10-42); BILIRUBIN,TOTAL 0.9 mg/dL (0.2-1.0); BUN - BLOOD UREA NITROGEN 15 mg/dL (6-20); CALCIUM 9.5 mg/dL (8.5-10.3); CARBON DIOXIDE - CO2 30 mmol/L (21-32); CHLORIDE 106 mmol/L (101-111); CHOL/HDL RATIO 3.9 (<4.4); CHOLESTEROL 244 mg/dL; CREATININE 0.7 mg/dL (0.4-1.0); GFR - MDRD 86 (>89); GLUCOSE 219 mg/dL (70-100); HDL CHOLESTEROL 62 mg/dL; LDL CHOLESTEROL,CALCULATED 158 mg/dL; LDL/HDL RATIO 2.5 (<4.4); POTASSIUM 4.3 mmol/L (3.5-5.0); SODIUM 143 mmol/L (135-145); TOTAL PROTEIN 6.8 g/dL (6.7-8.2); TRIGLYCERIDES 120 mg/dL; VLDL CHOLESTEROL 24 mg/dL
[2022-03-16 14:07] LABS: ESTIMATED AVERAGE GLUCOSE 186 mg/dL (70-100); HEMOGLOBIN A1c% 8.1 % (4.27-6.07)
== END 2022-03-16 07:18 | disposition home or self-care (01) ==
LOC: LAB.N 07:17
PROVIDERS: ATTEND Physician Assistant Medical
DX: E11.9 Type 2 diabetes mellitus without complications (principal)
CPT/HCPCS: 36415; 80053; 80061; 83036; 83721

== ENCOUNTER 2022-06-13 09:32 | Outpatient (CLI) | payer OTHER ==
[2022-06-13 11:51] LABS: BASOPHILS % (AUTO) 0.7 %; EOSINOPHILS # (AUTO) 0.1 10^3/uL (0.0-0.7); EOSINOPHILS % (AUTO) 2.6 %; HCT - HEMATOCRIT 42.9 % (37.0-47.0); HGB - HEMOGLOBIN 14.4 g/dL (12.0-16.0); LYMPHOCYTES % (AUTO) 43.8 %; MEAN CORPUSCULAR HEMOGLOBIN 30.9 pg (27.0-31.0); MEAN CORPUSCULAR HGB CONC 33.6 g/dL (32.0-36.0); MEAN CORPUSCULAR VOLUME 92.1 fL (81.0-99.0); MEAN PLATELET VOLUME 9.3 fL (7.9-10.8); MONOCYTES # (AUTO) 0.4 10^3/uL (0.0-1.0); NEUTROPHILS # (AUTO) 2.1 10^3/uL (1.5-6.6); NEUTROPHILS % (AUTO) 44.7 %; PLT - PLATELET COUNT 228 10^3/uL (130-450); RED BLOOD COUNT 4.66 10^6/uL (4.20-5.40); RED CELL DISTRIBUTION WIDTH 11.6 % (12.0-15.0); WHITE BLOOD COUNT 4.6 x10^3/uL (4.8-10.8)
[2022-06-13 12:21] LABS: THYROID STIMULATING HORMONE 0.42 uIU/mL (0.34-5.60)
[2022-06-13 12:23] LABS: ESTIMATED AVERAGE GLUCOSE 183 mg/dL (70-100)
[2022-06-13 12:41] LABS: ALBUMIN 4.5 g/dL (3.2-5.5); ALBUMIN/GLOBULIN RATIO 1.6 (1.0-2.2); ALKALINE PHOSPHATASE 66 IU/L (42-121); ALT ALANINE AMINOTRANSFERASE 48 IU/L (10-60); AST ASPARTATE AMINOTRANSFERASE 30 IU/L (10-42); BILIRUBIN,TOTAL 0.7 mg/dL (0.2-1.0); BUN - BLOOD UREA NITROGEN 15 mg/dL (6-20); CALCIUM 9.5 mg/dL (8.5-10.3); CARBON DIOXIDE - CO2 28 mmol/L (21-32); CHLORIDE 104 mmol/L (101-111); CHOL/HDL RATIO 2.4 (<4.4); CHOLESTEROL 181 mg/dL; CREATININE 0.7 mg/dL (0.4-1.0); GFR - MDRD 86 (>89); GLUCOSE 180 mg/dL (70-100); HDL CHOLESTEROL 74 mg/dL; LDL CHOLESTEROL,CALCULATED 87 mg/dL; LDL/HDL RATIO 1.2 (<4.4); POTASSIUM 4.4 mmol/L (3.5-5.0); SODIUM 138 mmol/L (135-145); TOTAL PROTEIN 7.3 g/dL (6.7-8.2); TRIGLYCERIDES 101 mg/dL; VLDL CHOLESTEROL 20 mg/dL
[2022-06-13 13:06] LABS: CREATININE,URINE 134.5 mg/dL; MICROALBUM/CREATININE RATIO,UR 7.4 ug/mg (<30.0)
== END 2022-06-13 09:33 | disposition home or self-care (01) ==
LOC: LAB.N 09:32
PROVIDERS: ATTEND Physician Assistant Medical
DX: Z00.00 Encounter for general adult medical examination without abnormal findings (principal); E78.5 Hyperlipidemia, unspecified; E11.9 Type 2 diabetes mellitus without complications
CPT/HCPCS: 36415; 80053; 80061; 82043; 82570; 83036; 83721; 84443; 85025

== ENCOUNTER 2022-07-25 06:52 | Emergency (ER) | payer OTHER ==
[2022-07-25] MEDS ORDERED: SODIUM CHLORIDE 0.9% 1,000 ML IV STA ×2 (07:28)
--- NOTE | 2022-07-25 07:39 | ED Physician Documentation ---
History of Present Illness - Stated complaint Stated Complaint: DIZZY/WEAK - Chief complaint Chief Complaint: General - History obtained from History obtained from: Patient - Additonal information Additional information: Patient is a 57-year-old female presenting for evaluation of feeling foggy and weak Over this past holiday weekend. Patient states that From to Saturday she had midsternal chest pain that felt like a pressure and was constant. She reports not having any pain at the past 2 days. She reports feeling foggy in her head and generalized weakness.She was camping this past weekend. She states her appetite was fine. She denies currently feeling short of air but states over the weekend she may have felt some tightness in her chest that made her feel short of breath. She denies abdominal pain, nausea, vomiting, dysuria. She recently started metformin and a statin. She is on lisinopril.She denies leg swelling or pain. Review of Systems Constitutional: denies: Fever Cardiac: reports: Chest pain / pressure Respiratory: denies: Cough GI: denies: Abdominal Pain, Vomiting : denies: Dysuria Musculoskeletal: denies: Back pain Neurologic: denies: Headache PD PAST MEDICAL HISTORY - Past Medical History Cardiovascular: Hypertension Respiratory: None Endocrine/Autoimmune: None GI: None SQL SERVER DEVELOPER: None : None HEENT: None Psych: None Musculoskeletal: None Derm: None - Past Surgical History Past Surgical History: No General: Colonoscopy /SQL SERVER DEVELOPER: Other - Present Medications Home Medications: Ambulatory Orders Medication Instructions Recorded Confirmed lisinopriL [Lisinopril] 20 mg PO DAILY 11/09/15 02/20/22 Rosuvastatin Calcium [Crestor] 0 mg PO HS 08/07/21 02/20/22 predniSONE [Deltasone] 20 mg PO [id number] #21 tab 02/20/22 - Allergies Allergies/Adverse Reactions: Allergies Allergy/AdvReac Type Severity Reaction Status Date / Time amoxicillin [From Augmentin] Allergy Respiratory Verified 02/20/22 06:32 clavulanic acid Allergy Respiratory Verified 02/20/22 06:32 [From Augmentin] hydrocodone AdvReac Emesis Verified 02/20/22 06:32 - Social History Does the pt smoke?: No Smoking Status: Never smoker Does the pt drink ETOH?: Yes Does the pt have substance abuse?: No - POLST Patient has POLST: No PD ED PE NORMAL - General General: Alert and oriented X 3, No acute distress, Well developed/nourished - HEENT HEENT: Atraumatic - Cardiac Cardiac: RRR, Strong equal pulses - Respiratory Respiratory: No respiratory distress, Clear bilaterally - Abdomen Abdomen: Soft, Non tender, Non distended - Derm Derm: Warm and dry - Extremities Extremities: No edema - Neuro Neuro: Alert and oriented X 3, technology risk intern 2-12 intact, No motor deficit, No sensory deficit, Normal speech, Other (Normal finger-nose bilaterally, normal gait) Eye Opening: Spontaneous Motor: Obeys Commands Verbal: Oriented GCS Score: 15 Results - Vitals Vitals: Vital Signs - 24 hr 07/25/22 07/25/22 07/25/22 07:01 07:28 09:04 Temperature 36.3 C L Heart Rate 77 68 64 Respiratory 19 22 16 Rate Blood Pressure 180/98 H 155/78 H 162/81 H O2 Saturation 100 97 98 07/25/22 09:47 Temperature Heart Rate 65 Respiratory 16 Rate Blood Pressure 159/85 H O2 Saturation 100 Oxygen O2 Source Room air - EKG (time done) 0716 EKG releavant findings:: EKG personally interpreted by author of this note. Relevant findings are: Rate 63, normal sinus rhythm, no STEMI, QTc 423 Rate: Rate (enter#) (63) Rhythm: NSR Intervals: No: Prolonged QT Ischemia: No: ST elevation c/w ischemia - Labs Labs: Laboratory Tests 07/25/22 07/25/22 07/25/22 08:22 08:22 08:22 WBC 4.8 RBC 4.45 Hgb 13.7 Hct 40.4 MCV 90.8 MCH 30.8 MCHC 33.9 RDW 11.4 L Plt Count 195 MPV 9.0 Neut # (Auto) 2.9 Lymph # (Auto) 1.4 L [place] # (Auto) 0.4 Eos # (Auto) 0.1 Baso # (Auto) 0.0 Absolute Nucleated RBC 0.00 Nucleated RBC % 0.0 Sodium 139 Potassium 3.9 Chloride 106 Carbon Dioxide 27 Anion Gap 6.0 BUN 17 Creatinine 0.7 Estimated GFR (MDRD) 86 L Glucose 201 H Calcium 9.2 Total Bilirubin 0.7 AST 34 ALT 53 Alkaline Phosphatase 62 Total Creatine Kinase 80 Troponin I High Sens 3.4 Total Protein 6.7 Albumin 4.1 Globulin 2.6 Albumin/Globulin Ratio 1.6 Lipase 55 H Urine Color Urine Clarity Urine pH Ur Specific [place] Urine Protein Urine Glucose (UA) Urine Ketones Urine Occult Blood Urine Nitrite Urine Bilirubin Urine Urobilinogen Ur Leukocyte Esterase Ur Microscopic Review Urine Culture Comments 07/25/22 08:58 WBC RBC Hgb Hct MCV MCH MCHC RDW Plt Count MPV Neut # (Auto) Lymph # (Auto) [place] # (Auto) Eos # (Auto) Baso # (Auto) Absolute Nucleated RBC Nucleated RBC % Sodium Potassium Chloride Carbon Dioxide Anion Gap BUN Creatinine Estimated GFR (MDRD) Glucose Calcium Total Bilirubin AST ALT Alkaline Phosphatase Total Creatine Kinase Troponin I High Sens Total Protein Albumin Globulin Albumin/Globulin Ratio Lipase Urine Color YELLOW Urine Clarity CLEAR Urine pH 5.5 Ur Specific [place] 1.020 Urine Protein NEGATIVE Urine Glucose (UA) NEGATIVE Urine Ketones NEGATIVE Urine Occult Blood NEGATIVE Urine Nitrite NEGATIVE Urine Bilirubin NEGATIVE Urine Urobilinogen 0.2 (NORMAL) Ur Leukocyte Esterase NEGATIVE Ur Microscopic Review NOT INDICATED Urine Culture Comments NOT INDICATED PD Medical Decision Making - ED course Complexity details: reviewed results, re-evaluated patient, d/w patient ED course: Pt presenting with generalized weakness and CP over weekend. BP elevated but improved on own. EKG is non ischemic. Labs including CBC, Chemistries, troponin, UA reviewed without acute findings.CK obtained as she recently started on a statin and is normal. Last CP was 2 days ago. Doubt ACS given no symptoms x 2 days and negative troponin with non ischemic EKG. Chest XR which I reviewed is without acute findings. Pt feeling better here with IV fluids. Ambulatory. No exam findings to suggest stroke. Counseled on need for close follow up with PCP. Advised on concerning symptoms to return for. Departure - Departure Disposition: 01 Home, Self Care Clinical Impression: Weakness, Chest pain Condition: Stable Instructions: ED Chest Pain Atypical Unkn Cause, ED Weakness UKO Follow-Up: Dulce Maria Kenney PA-C [Primary Care Provider] - Comments: Please call your PCP today for close outpatient follow-up. You may need further testing such as a stress test or ultrasound of your heart. The exact cause of your symptoms is unclear at this time but your labs are overall reassuring. Your blood sugar was elevated at 201. Otherwise the markers that look at your heart and your electrolytes are normal.Please make sure you are staying hydrated. If anytime you develop any recurrent or worsening symptoms please return to the emergency department. Discharge Date/Time: 07/25/22 09:49
--- NOTE | 2022-07-25 08:17 | XRAY Report ---
PROCEDURE: Chest 1 View X-Ray INDICATIONS: weakness TECHNIQUE: One view of the chest was acquired. COMPARISON: None. FINDINGS: Surgical changes and devices: None. Lungs and pleura: No pleural effusions or pneumothorax. Lungs are clear. Mediastinum: Mediastinal contours appear normal. Heart size is normal. Bones and chest wall: No suspicious bony lesions. Overlying soft tissues appear unremarkable. IMPRESSION: No acute cardiopulmonary process. Reviewed by: Vj Bingham MD on 07/25/2022 8:16 AM PDT Approved by: Vj Bingham MD on 07/25/2022 8:16 AM PDT Station ID: [id number]
[2022-07-25 08:31] LABS: BASOPHILS % (AUTO) 0.6 %; EOSINOPHILS # (AUTO) 0.1 10^3/uL (0.0-0.7); EOSINOPHILS % (AUTO) 1.3 %; HCT - HEMATOCRIT 40.4 % (37.0-47.0); HGB - HEMOGLOBIN 13.7 g/dL (12.0-16.0); LYMPHOCYTES # (AUTO) 1.4 10^3/uL (1.5-3.5); LYMPHOCYTES % (AUTO) 29.4 %; MEAN CORPUSCULAR HEMOGLOBIN 30.8 pg (27.0-31.0); MEAN CORPUSCULAR HGB CONC 33.9 g/dL (32.0-36.0); MEAN CORPUSCULAR VOLUME 90.8 fL (81.0-99.0); MONOCYTES # (AUTO) 0.4 10^3/uL (0.0-1.0); MONOCYTES % (AUTO) 7.8 %; NEUTROPHILS # (AUTO) 2.9 10^3/uL (1.5-6.6); NEUTROPHILS % (AUTO) 60.5 %; PLT - PLATELET COUNT 195 10^3/uL (130-450); RED BLOOD COUNT 4.45 10^6/uL (4.20-5.40); RED CELL DISTRIBUTION WIDTH 11.4 % (12.0-15.0); WHITE BLOOD COUNT 4.8 x10^3/uL (4.8-10.8)
[2022-07-25 08:49] LABS: ALBUMIN 4.1 g/dL (3.2-5.5); ALBUMIN/GLOBULIN RATIO 1.6 (1.0-2.2); BILIRUBIN,TOTAL 0.7 mg/dL (0.2-1.0); CALCIUM 9.2 mg/dL (8.5-10.3); CREATININE 0.7 mg/dL (0.4-1.0); POTASSIUM 3.9 mmol/L (3.5-5.0); TOTAL PROTEIN 6.7 g/dL (6.7-8.2)
[2022-07-25 09:09] LABS: BILIRUBIN,URINE NEGATIVE (NEGATIVE); GLUCOSE, URINE (UA) NEGATIVE (NEGATIVE); KETONES,URINE (UA) NEGATIVE (NEGATIVE); LEUKOCYTE ESTERASE, URINE NEGATIVE (NEGATIVE); NITRITE,URINE NEGATIVE (NEGATIVE); OCCULT BLOOD,URINE NEGATIVE (NEGATIVE); PH,URINE 5.5 PH (5.0-7.5); PROTEIN,URINE NEGATIVE (NEGATIVE); UROBILINOGEN,URINE 0.2 (NORMAL) E.U./dL (NORMAL)
[2022-07-25 09:10] LABS: CLARITY,URINE CLEAR (CLEAR)
[2022-07-25 09:49] VITALS: BP 159/85
== END 2022-07-25 09:49 | disposition home or self-care (01) ==
LOC: ED 06:52
DX: R07.89 Other chest pain (principal); R53.1 Weakness; I10 Essential (primary) hypertension; Z79.899 Other long term (current) drug therapy
CPT/HCPCS: 36415; 80053; 81001; 81003; 82550; 83690; 84484; 85025; 87086; 93005; 99283; 99284

== ENCOUNTER 2022-08-23 21:00 | Outpatient (CLI) | payer OTHER ==
--- NOTE | 2022-08-24 14:42 | Ultrasound Report ---
PROCEDURE: Carotid Doppler Complete INDICATIONS: CHEST PAIN TECHNIQUE: Color and pulse Doppler interrogation was performed of both carotid systems, with image documentation and velocity measurements. COMPARISON: None. FINDINGS: Right side: Brachial blood pressure: 157/92 mm Hg. Common carotid artery peak systolic velocity: 85.6 cm/sec. Internal carotid artery peak systolic velocity: 116.5 cm/sec. Internal carotid artery end diastolic velocity: 40.0 cm/sec. External carotid artery peak systolic velocity: 86.0 cm/sec. ICA/CCA peak systolic ratio: 1.4 . Blank scale imaging description: Atheromatous plaque is present throughout the common carotid and the carotid bifurcation. Percent internal carotid artery stenosis: Less than 50%. Vertebral artery: Flow direction is antegrade. Left side: Brachial blood pressure: 161/83 mm Hg. Common carotid artery peak systolic velocity: 89.25 cm/sec. Internal carotid artery peak systolic velocity: 79.47 cm/sec. Internal carotid artery end diastolic velocity: 19.7 cm/sec. External carotid artery peak systolic velocity: 77.5 cm/sec. ICA/CCA peak systolic ratio: 0.8 . Blank scale imaging description: Atheromatous plaque is present throughout the distal common carotid and the carotid bifurcation. Percent internal carotid artery stenosis: Less than 50 percent stenosis. Vertebral artery: Flow direction is antegrade. IMPRESSION: 1. In the right internal carotid artery, there is less than 50 percent stenosis based on peak systoli c velocity criteria. 2. In the left internal carotid artery, there is less than 50 percent stenosis based on peak systolic velocity criteria. 3. Antegrade blood flow within the right vertebral artery. 4. Antegrade blood flow within the left vertebral artery. The estimate of stenosis included in the report of the imaging study was calculated using the [facility]-end orsed standards of carotid artery stenosis. Reviewed by: Stephani Amato MD on 08/24/2022 2:41 PM PDT Approved by: Stephani Amato MD on 08/24/2022 2:41 PM PDT Station ID: [id number]
== END 2022-08-23 21:01 | disposition home or self-care (01) ==
LOC: DI 21:00
PROVIDERS: ATTEND Physician Assistant Medical
DX: R07.9 Chest pain, unspecified (principal); I65.23 Occlusion and stenosis of bilateral carotid arteries
CPT/HCPCS: 93880

== ENCOUNTER 2022-10-31 12:28 | Outpatient (CLI) | payer OTHER | END 2022-10-31 12:29 | disposition home or self-care (01) | LOC: DI 12:28 | PROVIDERS: ATTEND Physician Assistant Medical | DX: R07.9 Chest pain, unspecified (principal) | CPT/HCPCS: 93306 ==

== ENCOUNTER 2022-12-12 09:41 | Outpatient (CLI) | payer OTHER ==
[2022-12-12 10:23] LABS: ALBUMIN 4.5 g/dL (3.2-5.5); ALKALINE PHOSPHATASE 70 IU/L (42-121); ALT ALANINE AMINOTRANSFERASE 25 IU/L (10-60); AST ASPARTATE AMINOTRANSFERASE 17 IU/L (10-42); BILIRUBIN,TOTAL 0.5 mg/dL (0.2-1.0); BUN - BLOOD UREA NITROGEN 14 mg/dL (6-20); CARBON DIOXIDE - CO2 32 mmol/L (21-32); CHLORIDE 106 mmol/L (101-111); CHOL/HDL RATIO 3.2 (<4.4); CHOLESTEROL 223 mg/dL; CREATININE 0.7 mg/dL (0.6-1.3); GFR - MDRD 86 (>89); GLUCOSE 151 mg/dL (74-104); HDL CHOLESTEROL 69 mg/dL; LDL CHOLESTEROL,CALCULATED 123 mg/dL; LDL/HDL RATIO 1.8 (<4.4); POTASSIUM 4.2 mmol/L (3.5-4.5); SODIUM 142 mmol/L (135-145); TOTAL PROTEIN 6.8 g/dL (6.4-8.9); TRIGLYCERIDES 155 mg/dL (48-352); VLDL CHOLESTEROL 31 mg/dL
[2022-12-12 11:36] LABS: ESTIMATED AVERAGE GLUCOSE 163 mg/dL (70-100); HEMOGLOBIN A1c% 7.3 % (4.27-6.07)
== END 2022-12-12 09:42 | disposition home or self-care (01) ==
LOC: LAB 09:41
PROVIDERS: ATTEND Physician Assistant Medical
DX: E11.9 Type 2 diabetes mellitus without complications (principal)
CPT/HCPCS: 36415; 80053; 80061; 83036; 83721

== ENCOUNTER 2023-09-05 08:15 | Outpatient (CLI) | payer OTHER ==
[2023-09-05 12:30] LABS: ALBUMIN 4.5 g/dL (3.2-5.5); ALBUMIN/GLOBULIN RATIO 1.9 (1.0-2.2); ALKALINE PHOSPHATASE 56 IU/L (42-121); ALT ALANINE AMINOTRANSFERASE 38 IU/L (10-60); AST ASPARTATE AMINOTRANSFERASE 26 IU/L (10-42); BILIRUBIN,TOTAL 0.6 mg/dL (0.2-1.0); BUN - BLOOD UREA NITROGEN 14 mg/dL (6-20); CALCIUM 10.1 mg/dL (8.5-10.3); CARBON DIOXIDE - CO2 30 mmol/L (21-32); CHLORIDE 105 mmol/L (101-111); CHOL/HDL RATIO 2.6 (<4.4); CHOLESTEROL 141 mg/dL; CREATININE 0.8 mg/dL (0.6-1.3); GFR - MDRD 74 (>89); GLUCOSE 212 mg/dL (74-104); HDL CHOLESTEROL 54 mg/dL; LDL CHOLESTEROL,CALCULATED 61 mg/dL; LDL/HDL RATIO 1.1 (<4.4); POTASSIUM 4.5 mmol/L (3.5-4.5); SODIUM 140 mmol/L (135-145); TOTAL PROTEIN 6.9 g/dL (6.4-8.9); TRIGLYCERIDES 131 mg/dL; VLDL CHOLESTEROL 26 mg/dL
[2023-09-05 12:46] LABS: ESTIMATED AVERAGE GLUCOSE 174 mg/dL (70-100); HEMOGLOBIN A1c% 7.7 % (4.27-6.07)
== END 2023-09-05 08:16 | disposition home or self-care (01) ==
LOC: LAB.N 08:15
PROVIDERS: ATTEND Physician Assistant Medical
DX: E11.9 Type 2 diabetes mellitus without complications (principal)
CPT/HCPCS: 36415; 80053; 80061; 83036; 83721

== ENCOUNTER 2023-09-16 15:31 | Outpatient (CLI) | payer OTHER ==
--- NOTE | 2023-09-16 17:10 | Ultrasound Report ---
PROCEDURE: Soft Tissue Head or Neck INDICATIONS: NECK SWELLING TECHNIQUE: Real-time scanning was performed of the thyroid gland, with image documentation. COMPARISON: None FINDINGS: Right: Thyroid lobe measures 5.2 x 2.0 x 1.7 cm. Left: Thyroid lobe measures 3.7 x 1.7 x 1.5 cm Isthmus: 0.4 cm thick. Echotexture: Homogeneous. IMPRESSION: Normal thyroid ultrasound. Visualized neck is within normal limits. ACR TI-RADS definitions and recommendations: TI-RADS 1 (benign): 0 points. FNA not needed. TI-RADS 2 (not suspicious): 2 points. FNA not needed. TI-RADS 3 (mildly suspicious): 3 points. "FNA if 2.5 cm or larger, follow up if 1.5 cm or larger (at 1, 3, and 5 years). TI-RADS 4 (moderately suspicious): 4-6 points. "FNA if 1.5 cm or larger, follow up if 1 cm or larger (at 1, 2, 3, and 5 years). TI-RADS 5 (highly suspicious): 7 points or more. "FNA if 1 cm or larger, follow up if 0.5 cm or larger (every year for 5 years). Reviewed by: Glen Conley MD on 09/16/2023 5:08 PM PDT Approved by: Glen Conley MD on 09/16/2023 5:08 PM PDT Station ID: [id number]
== END 2023-09-16 15:32 | disposition home or self-care (01) ==
LOC: DI 15:31
PROVIDERS: ATTEND Physician Assistant Medical
DX: R22.1 Localized swelling, mass and lump, neck (principal)

== ENCOUNTER 2023-09-17 08:17 | Outpatient (CLI) | payer OTHER ==
--- NOTE | 2023-09-17 11:52 | Mammography Report ---
BILATERAL DIGITAL SCREENING MAMMOGRAM 3D/2D: 09/17/2023 CLINICAL: Routine screening. Comparison is made to exams dated: 12/06/2021 mammogram, 01/06/2019 mammogram, and 09/10/2016 mammogr am - [facility]. There are scattered areas of fibroglandular density in both breasts (category b / 25%-50% glandular t issue). No significant masses, calcifications, or other findings are seen in either breast. There has been no significant interval change. IMPRESSION: NEGATIVE There is no mammographic evidence of malignancy. A 1 year screening mammogram is recommended. Based on the Tyrer Cuzick model (a risk assessment model) the patient's lifetime risk is 5.5% and her 10 year risk is 2.0%. According to the ACR, ACS, and NCCN guidelines, an annual breast MRI exam jason g with mammogram is recommended if the patient's lifetime risk is 20% or greater. This exam was interpreted at Station ID: [id number]. NOTE: For mammograms, a report in lay terms will be sent to the patient. Approximately 15% of breast malignancies will not be visualized mammographically. In the management of a palpable breast mass, a negative mammogram must not discourage biopsy of a clinically suspicious lesion. Electronically Signed By: Giovani dale/dale:09/17/2023 11:26:01 letter sent: No_Letter ACR BI-RADS Category 1: Negative 3341F PARENCHYMAL PATTERN: (A) - The breast(s) demonstrate(s) scattered fibroglandular densities. BI-RADS CATEGORY: (1) - 1 RECOMMENDATION: (ANNUAL) - Recommend routine annual screening mammography. [id number] 1 year screening LATERALITY: (B)
== END 2023-09-17 08:18 | disposition home or self-care (01) ==
LOC: DI 08:17
DX: Z12.31 Encounter for screening mammogram for malignant neoplasm of breast (principal); R92.323 Mammographic fibroglandular density, bilateral breasts